=== PATIENT | male | born 1990 | race Caucasian/White ===

== ENCOUNTER 2021-02-24 18:57 | Emergency (ER) | payer BC ==
[~2021-02-24] VITALS: Ht 175.3 cm; Wt 79.4 kg
[2021-02-24 19:49] VITALS: BP 138/86
--- NOTE | 2021-02-24 20:55 | NUR ---
SANJAY STATED PT LEFT LOBBY AT 2054
--- NOTE | 2021-02-24 20:55 | NUR ---
PATIENT LEFT WITHOUT BEING SEEN BY DR. MALONEY. NO FURTHER CARE PROVIDED FOR PATIENT.
--- NOTE | 2021-02-24 21:00 | NUR ---
CALLED FOR THE SECOND TIME NO RESPONSE
--- NOTE | 2021-02-24 21:10 | NUR ---
CALLED FOR THRE THIRD TIME , NO RESPONSE
== END 2021-02-24 20:55 | disposition left against medical advice (07) ==
LOC: MED 18:57
DX: R10.13 Epigastric pain (principal); R51.9 Headache, unspecified; R09.89 Other specified symptoms and signs involving the circulatory and respiratory systems; Z53.21 Procedure and treatment not carried out due to patient leaving prior to being seen by health care provider

== ENCOUNTER 2021-02-26 09:02 | Emergency (ER) | payer BC ==
[~2021-02-26] VITALS: Ht 175.3 cm; Wt 81.6 kg
[2021-02-26 09:15] VITALS: BP 129/88
[2021-02-26] MEDS ORDERED: DICYCLOMINE HCL LIQUID 20 MG, ALUMINUM HYD/MAG/SIMETHICONE 30 ML, LIDOCAINE VISCOUS 2% ... PO ONE ×3 (09:40)
[2021-02-26] MEDS ORDERED: KETOROLAC 30 MG/ML VIAL IM ONE (09:40)
[2021-02-26] MEDS ORDERED: methylPREDNISolone SS 40 MG in WATER STERILE 1 ML IM ONE (09:40)
[2021-02-26] MEDS ORDERED: DICYCLOMINE HCL LIQUID 10 MG/5 ML UDC ONE (09:50)
[2021-02-26] MEDS ORDERED: ALUMINUM HYD/MAG/SIMETHICONE 30 ML UDC ONE (09:50)
[2021-02-26 11:08] LABS: BASOPHILS % (AUTO) 0.5 % (0.0-2.0); EOSINOPHILS # (AUTO) 0.2 K/uL (0-0.4); HEMATOCRIT 43.8 % (36-52); HEMOGLOBIN 15.4 g/dL (12.0-18.0); LYMPHOCYTES # (AUTO) 1.7 K/uL (2.0-11.5); LYMPHOCYTES % (AUTO) 19.6 % (20.5-51.1); MEAN CORPUSCULAR HEMOGLOBIN 29 pg (27-31); MEAN CORPUSCULAR HGB CONC 35 g/dL (33-37); MEAN CORPUSCULAR VOLUME 83.3 fL (80-94); MONOCYTES # (AUTO) 0.7 K/uL (0.8-1.0); NEUTROPHILS # (AUTO) 6.2 K/uL (1.8-7.7); NEUTROPHILS % (AUTO) 69.9 % (42.2-75.2); PLATELET COUNT (AUTO) 280 K/uL (140-450); RED BLOOD CELL COUNT(AUTO) 5.26 MIL/uL (4.20-6.10); RED CELL DISTRIBUTION WIDTH 13.1 % (11.6-13.7); WHITE BLOOD COUNT (AUTO) 8.9 K/uL (4.8-10.8)
[2021-02-26 11:45] LABS: ALBUMIN 3.7 g/dL (3.4-5.0); ANION GAP 14.9 (8-16); CREATININE 1.1 mg/dL (0.6-1.3); POTASSIUM 3.9 mmol/L (3.5-5.1); TOTAL BILIRUBIN 0.5 mg/dL (0.0-1.0)
[2021-02-26] MEDS ORDERED: FAMO-90 PO ×3 (12:00→13:21)
[2021-02-26] MEDS ORDERED: IBUP-2213 PO ×3 (12:00→13:21)
[2021-02-26 13:27] VITALS: BP 129/88
--- NOTE | 2021-02-26 13:41 | NUR ---
Patient discharged with v/s stable. Written and verbal after care instructions given and explained. Patient alert, oriented and verbalized understanding of instructions. Ambulatory with steady gait. All questions addressed prior to discharge. ID band removed. Patient advised to follow up with PMD. Rx of famotidine, ibuprofen given. Patient educated on indication of medication including possible reaction and side effects. Opportunity to ask questions provided and answered.
== END 2021-02-26 13:41 | disposition home or self-care (01) ==
LOC: MED 09:02
DX: U07.1 COVID-19 (principal); F17.210 Nicotine dependence, cigarettes, uncomplicated
CPT/HCPCS: 36415; 71045; 80053; 83690; 84484; 85025; 85379; 93005; 96372; 99285; J1885

== ENCOUNTER 2023-06-24 14:13 | Emergency (ER) | payer BC ==
[~2023-06-24] VITALS: Ht 175.3 cm; Wt 99.8 kg
[~2023-06-24 14:13] MED LIST: FAMO-90 PO; IBUP-2213 PO
[2023-06-24 14:23] VITALS: BP 130/90; PULSE 65; RESP 20; TEMP 98; O2SAT 95
[2023-06-24] MEDS: ACETAMINOPHEN 325 MG TAB PO ONE (14:48)
[2023-06-24] MEDS: methocarbamoL 500 MG TAB PO STA (14:51)
[2023-06-24] MEDS: KETOROLAC 30 MG/ML VIAL IM ONE (14:52)
[2023-06-24] MEDS: LIDOCAINE 5% 1 EA PATCH TP ONE (14:56)
[2023-06-24] MEDS: predniSONE 20 MG TAB PO ONE (14:58)
[2023-06-24] MEDS ORDERED: IBUP-2213 PO (15:51)
[2023-06-24] MEDS ORDERED: LID5T TP (15:51)
[2023-06-24] MEDS ORDERED: METH-1681 PO (15:51)
[2023-06-24] MEDS ORDERED: PRED20TA5 PO (15:51)
[2023-06-24] MEDS: MORPHINE SULFATE 4 MG/ML SYR IM ONE (15:53)
[2023-06-24 16:41] VITALS: BP 119/69; PULSE 94; RESP 13; TEMP 98; O2SAT 95
== END 2023-06-24 16:41 | disposition home or self-care (01) ==
LOC: MED 14:13
DX: S39.012A Strain of muscle, fascia and tendon of lower back, initial encounter (principal); M54.30 Sciatica, unspecified side; M79.651 Pain in right thigh; Z79.899 Other long term (current) drug therapy; X58.XXXA Exposure to other specified factors, initial encounter; Y93.89 Activity, other specified; Y92.89 Other specified places as the place of occurrence of the external cause; Y99.8 Other external cause status
CPT/HCPCS: 96372; 99284; J1885; J2270; J7512